=== PATIENT | male | born 1975 | race Caucasian/White ===

== ENCOUNTER 2019-07-17 17:15 | Emergency (ER) | payer SELFPAY ==
[~2019-07-17] VITALS: Ht 170.2 cm; Wt 63.5 kg
[2019-07-17 17:23] VITALS: BP 136/92
[2019-07-17 19:31] LABS: BASOPHILS % (AUTO) 0.3 % (0.0-2.0); EOSINOPHILS # (AUTO) 0.1 K/uL (0-0.4); EOSINOPHILS % (AUTO) 0.8 % (0.0-4.0); HEMATOCRIT 48.2 % (36-52); LYMPHOCYTES % (AUTO) 26.5 % (20.5-51.1); MEAN CORPUSCULAR HEMOGLOBIN 30 pg (27-31); MEAN CORPUSCULAR HGB CONC 33 g/dL (33-37); MEAN CORPUSCULAR VOLUME 89.5 fL (80-94); MONOCYTES # (AUTO) 0.7 K/uL (0.8-1.0); MONOCYTES % (AUTO) 8.7 % (1.7-9.3); NEUTROPHILS # (AUTO) 4.8 K/uL (1.8-7.7); NEUTROPHILS % (AUTO) 63.7 % (42.2-75.2); PLATELET COUNT (AUTO) 215 K/uL (140-450); RED BLOOD CELL COUNT(AUTO) 5.38 MIL/uL (4.20-6.10); RED CELL DISTRIBUTION WIDTH 15.2 % (11.6-13.7); WHITE BLOOD COUNT (AUTO) 7.5 K/uL (4.8-10.8)
[2019-07-17 19:39] LABS: ANION GAP 12.6 (8-16); CARBON DIOXIDE 29.7 mmol/L (21-32); CREATININE 0.8 mg/dL (0.7-1.3); POTASSIUM 4.3 mmol/L (3.5-5.1)
[2019-07-17] MEDS: NACL 0.9% 1,000 ML IV ONE (20:45)
[2019-07-17] MEDS: LORazepam 2 MG/ML VIAL IVP ONE (20:46)
[2019-07-17] MEDS: KETOROLAC 30 MG/ML VIAL IVP ONE (20:46)
[2019-07-17 21:24] VITALS: BP 136/92
== END 2019-07-17 21:24 | disposition home or self-care (01) ==
LOC: MED 17:15
DX: R07.9 Chest pain, unspecified (principal); R11.2 Nausea with vomiting, unspecified; R63.0 Anorexia; K21.9 Gastro-esophageal reflux disease without esophagitis; I10 Essential (primary) hypertension; F17.200 Nicotine dependence, unspecified, uncomplicated; F41.9 Anxiety disorder, unspecified; Z88.1 Allergy status to other antibiotic agents
CPT/HCPCS: 36415; 71045; 80048; 82948; 84484; 85025; 96361; 96374; 96375; 99284; J1885; J2060; Q0092

== ENCOUNTER 2019-08-14 11:55 | Emergency (ER) | payer MEDICAID ==
[~2019-08-14] VITALS: Ht 170.2 cm; Wt 65.8 kg
[2019-08-14 11:59] VITALS: BP 125/69
[2019-08-14] MEDS ORDERED: MORPHINE SULFATE 10 MG/ML VIAL IM ONE (12:45)
[2019-08-14] MEDS ORDERED: ONDANSETRON 4 MG ODT PO ONE (13:30)
[2019-08-14 14:27] VITALS: BP 123/71
== END 2019-08-14 14:09 | disposition home or self-care (01) ==
LOC: MED 11:55
DX: S29.012A Strain of muscle and tendon of back wall of thorax, initial encounter (principal); K21.9 Gastro-esophageal reflux disease without esophagitis; I10 Essential (primary) hypertension; Z88.1 Allergy status to other antibiotic agents; X58.XXXA Exposure to other specified factors, initial encounter; Y93.89 Activity, other specified; Y92.89 Other specified places as the place of occurrence of the external cause; Y99.8 Other external cause status
CPT/HCPCS: 72072; 96372; 99283; J2270; Q0162; J7030